=== PATIENT | male | born 1985 | race Caucasian/White ===

== ENCOUNTER 2017-10-07 18:11 | Emergency (ER) | payer OTHER ==
[~2017-10-07] VITALS: Ht 182.9 cm; Wt 77.1 kg
[2017-10-07 19:08] LABS: ABSOLUTE BASOPHIL COUNT 0.1 /CUMM (0.0-0.2); ABSOLUTE EOSINOPHIL COUNT 0.5 /CUMM (0.0-0.7); ABSOLUTE GRANULOCYTE CT 4.6 /CUMM (1.4-6.5); ABSOLUTE LYMPH COUNT 1.7 /CUMM (1.2-3.4); ABSOLUTE MONOCYTE COUNT 0.7 /CUMM (0.10-0.60); BASOPHIL % 1.1 % (0.0-2.0); EOSINOPHIL % 6.5 % (0-5); HEMATOCRIT 42.4 % (42-52); MEAN CORPUSCULAR HGB 28.9 PG (27.0-31.0); MEAN CORPUSCULAR HGB CONC 34.4 G/DL (33.0-37.0); MEAN CORPUSCULAR VOLUME 84.1 FL (80.0-94.0); MEAN PLATELET VOLUME 7.4 FL (7.4-10.4); PLATELET COUNT 325 /CUMM (130-400); RBC DISTRIBUTION WIDTH 14.6 % (11.5-14.5); RED BLOOD CELL CT 5.05 /CUMM (4.70-6.10); WHITE BLOOD CELL COUNT 7.6 /CUMM (4.8-10.8)
--- NOTE | 2017-10-07 19:20 | ED GENERAL ADULT ---
History of Present Illness General Chief Complaint: ETOH/Drug Related Complaint Stated Complaint: SENT BY [facility] FOR ALCOHOL DETOX Source: patient Exam Limitations: no limitations Vital Signs & Intake/Output Vital Signs & Intake/Output Vital Signs Date Time Temp Pulse Resp B/P B/P Pulse O2 O2 Flow FiO2 Mean Ox Delivery Rate 10/08 0214 98.7 86 18 126/67 99 Room Air 10/08 0151 98.7 86 18 126/67 10/07 2354 98.7 84 18 135/74 10/07 2354 98.7 84 18 135/74 99 Room Air 10/07 2105 98.1 85 16 140/88 10/07 2105 98.1 85 16 140/88 99 Room Air 10/07 1944 Room Air 10/07 1816 97.8 108 20 148/90 10/07 1816 97.8 108 20 148/90 100 Room Air ED Intake and Output 10/08 0000 10/07 1200 Intake Total 480 Output Total Balance 480 Intake, Oral 480 Patient 170 lb Weight Weight Reported by Patient Measurement Method Allergies Coded Allergies: doxycycline (RASH 10/07/17) Triage Note: PT TO ED FOR HIGHWATCH CLEARANCE. STATES HE BINGE DRINKS. LAST DRINK WAS WEDNESDAY, DRANK 18-20 BEERS. DENIES SEIZURES WITH DETOX. DENIES SI/HI. OCCASIONAL USE OF COCAINE, LAST USED WEDNESDAY. CALM/COOPERATIVE. Triage Nurses Notes Reviewed? yes Onset: Abrupt Duration: week(s):, constant, continues in ED Timing: single episode today Injury Environment: home Severity: mild, moderate No Modifying Factors: none HPI: 31-year-old male no medical history presents requesting clearance to go to [facility]. Patient reports he has been drinking alcohol for years. He states that recently he started drinking more than usual. He states he drinks about 3 times a week he drinks heavily. He is unsure exactly how much. His last drink was Wednesday which was 2 days ago now. Denies any history of alcohol withdrawal withdrawal seizures. He also reports using cocaine. No chest pain or shortness of breath. No benzodiazepine use or any other drug use. He denies suicidal or homicidal ideation. No hallucinations. He does not take any medications on regular basis. He feels well has no concerns. (Jaspal Cano) Past History Travel History Traveled to [place] past 21 day No Medical History Any Pertinent Medical History? see below for history Surgical History Surgical History: non-contributory Psychosocial History What is your primary language U[place]ayan Tobacco Use: Current Daily Use Daily Tobacco Use Amount/Type: => 5 Cigarettes daily ETOH Use: heavy use Family History Hx Contributory? No (Jaspal Cano) Review of Systems Review of Systems Constitutional: Reports: no symptoms. EENTM: Reports: no symptoms. Respiratory: Reports: no symptoms. Cardiovascular: Reports: no symptoms. GI: Reports: no symptoms. Genitourinary: Reports: no symptoms. Musculoskeletal: Reports: no symptoms. Skin: Reports: no symptoms. Neurological/Psychological: Reports: no symptoms. Hematologic/Endocrine: Reports: no symptoms. Immunologic/Allergic: Reports: no symptoms. All Other Systems: Reviewed and Negative (Jaspal Cano) Physical Exam Physical Exam General Appearance: well developed/nourished, no apparent distress, alert, awake Head: atraumatic, normal appearance Eyes: Bilateral: normal appearance, PERRL, EOMI. Ears, Nose, Throat: normal pharynx, normal ENT inspection, hearing grossly normal Neck: normal inspection, supple, full range of motion Respiratory: normal breath sounds, chest non-tender, no respiratory distress, lungs clear Cardiovascular: regular rate/rhythm, normal peripheral pulses Peripheral Pulses: 2+ radial (R), 2+ radial (L) Gastrointestinal: normal bowel sounds, soft, non-tender, no organomegaly Back: normal inspection, normal range of motion, no vertebral tenderness Extremities: normal inspection, normal capillary refill, normal range of motion, no edema Neurologic/Psych: no motor/sensory deficits, awake, alert, oriented x 3, normal gait Skin: intact, normal color, warm/dry Lymphatic: no anterior cervical vick Core Measures ACS in differential dx? No CVA/TIA Diagnosis: No Sepsis Present: No Sepsis Focused Exam Completed? No (Jaspal Cano) Progress Differential Diagnoses I considered the following diagnoses in my evaluation of the patient: [Alcohol intoxication, alcohol withdrawal, drug intoxication, drug withdrawal] Plan of Care: Orders Procedure Date/time Status Regular Diet 10/07 D Active Add-on Test (ER Only) 10/07 1849 Active EKG 10/07 1849 Active CIWA 10/07 1821 Active URINE DRUG SCREEN FOR ER ONLY 10/07 1821 Complete URINALYSIS 10/07 1821 Complete TROPONIN LEVEL 10/07 1821 Complete MAGNESIUM 10/07 1820 Complete ETHANOL 10/07 1820 Complete COMPREHENSIVE METABOLIC PANEL 10/07 1820 Complete CBC WITHOUT DIFFERENTIAL 10/07 1820 Complete Laboratory Tests 10/07/17 185: Serum Alcohol < 10.0 10/07/171849: Anion Gap 10, Estimated GFR > 60, BUN/Creatinine Ratio 20.0, Glucose 120 H, Calcium 9.7, Magnesium 1.9, Total Bilirubin 0.2, AST 26, ALT 24, Alkaline Phosphatase 59, Troponin I < 0.01, Total Protein 6.8, Albumin 4.3, Globulin 2.5, Albumin/Globulin Ratio 1.7, CBC w Diff NO MAN DIFF REQ, RBC 5.05, MCV 84.1, MCH 28.9, MCHC 34.4, RDW 14.6 H, MPV 7.4, Gran % 61.0, Lymphocytes % 22.4, Monocytes % 9.0, Eosinophils % 6.5 H, Basophils % 1.1, Absolute Granulocytes 4.6, Absolute Lymphocytes 1.7, Absolute Monocytes 0.7 H, Absolute Eosinophils 0.5, Absolute Basophils 0.1, Urine Opiates Screen < 100, Methadone Screen < 40, Barbiturate Screen < 60, Ur Phencyclidine Scrn < 6.00, Amphetamines Screen < 100 , U Benzodiazepines Scrn < 85, Urine Cocaine Screen > 1000 H, Urine Cannabis Screen < 5.00, Urine Color YEL, Urine Clarity CLEAR, Urine pH 7.0, Ur Specific Rudd 1.020, Urine Protein NEG, Urine Ketones NEG, Urine Nitrite NEG, Urine Bilirubin NEG, Urine Urobilinogen 0.2, Ur Leukocyte Esterase NEG, Ur Microscopic EXAM NOT REQUIRED, Urine Hemoglobin NEG, Urine Glucose NEG Patient is here requesting clearance to go to [facility]. He is an alcoholic. He drinks 3 times a week lasting was 2 days ago. Currently not showing any signs of alcohol withdrawal initial CIWA 0. Labs EKG ordered. Patient will be monitored likely will go to [facility] in the morning. EKG showed some mild diffuse ST elevations however patient has no chest pain no shortness of breath. Troponin is negative. Suspect it is likely normal variant Patient has been resting comfortably throughout the night. Labs are unremarkable. CIWA was have been 0. Patient signed out to Dr. hurtado pending repeat CIWA and disposition. Initial ED EKG: normal sinus rhythm, mild diffuse ST elevations Hand-Off Endorsed To: Marshall Hurtado MD Endorsed Time: 2321 Pending: other (ciwa) (Jaspal Cano) Hand-Off Endorsed To: Raymundo Alonso DO Endorsed Time: 0700 Pending: other ([place]) (Marshall Hurtado MD) Departure Departure Disposition: STILL A PATIENT Condition: Stable Clinical Impression Primary Impression: Alcohol withdrawal Qualifiers: Complication of substance-induced condition: uncomplicated Qualified Code: F10.230 - Alcohol dependence with withdrawal, uncomplicated Referrals: Patient Has No Primary Care Dr (PCP/Family) Departure Forms: Customer Survey General Discharge Information (Jaspal Cano) PA/CANAL EQUIPMENT MECHANIC Co-Sign Statement Statement: ED Attending supervision documentation- [] I saw and evaluated the patient. I have also reviewed all the pertinent lab results and diagnostic results. I agree with the findings and the plan of care as documented in the PA's/CANAL EQUIPMENT MECHANIC's documentation. [x] I have reviewed the ED Record and agree with the PA's/CANAL EQUIPMENT MECHANIC's documentation. [] Additions or exceptions (if any) to the PAs/CANAL EQUIPMENT MECHANIC's note and plan are summarized below: [] (Raymundo Alonso DO) Critical Care Note Critical Care Note Critical Care Time: non-applicable (Jaspal Cano)
[2017-10-08 07:30] VITALS: BP 135/85
== END 2017-10-08 07:54 ==
LOC: ERH 18:11
PROVIDERS: Physician Assistant
DX: F10.20 Alcohol dependence, uncomplicated (principal)
CPT/HCPCS: 80307; 81003; 93005; 93010; G0480